=== PATIENT | male | born 1950 | race Caucasian/White ===

== ENCOUNTER 2020-02-27 09:11 | Inpatient (IN) | payer MEDICARE, MEDICAID, OTHER ==
[~2020-02-27] VITALS: Ht 170.2 cm; Wt 72.6 kg
[2020-02-27] MEDS ORDERED: AZITHROMYCIN 500 MG in DEXT 5% WATER 250 ML IV ONE (09:30)
[2020-02-27] MEDS ORDERED: CEFTRIAXONE 1 G PREMIX 50 ML IV ONE (09:30)
[2020-02-27] MEDS ORDERED: DEXAMETHASONE 10 MG/ML VIAL IV ONE (09:30)
[2020-02-27 10:15] LABS: BASOPHILS % 0.8 % (0.0-2.0); EOSINOPHILS % 0.3 % (0.0-5.0); HEMATOCRIT. 43.5 % (42.0-52.0); HEMOGLOBIN. 14.1 g/dL (14.0-18.0); LYMPHOCYTES % 24.7 % (20.0-50.0); MEAN CORPUSCULAR HEMOGLOBIN 30.1 pg (28.0-32.0); MEAN CORPUSCULAR VOLUME 93.1 fL (80.0-94.0); MONOCYTES % 5.8 % (2.0-8.0); NEUTROPHILS % 68.4 % (40.0-76.0); PLATELET 226 x1000/uL (130-400); RED BLOOD CELL COUNT 4.67 mill/uL (4.7-6.1); RED CELL DISTRIBUTION WIDTH 14.8 % (11.6-14.6)
[2020-02-27 10:18] LABS: CHLORIDE 102 mEq/L (98-107)
[2020-02-27 10:27] LABS: CREATINE KINASE 350 IU/L (39-308)
[2020-02-27 10:31] LABS: D-DIMER 4.47 mg/L FEU (<0.50); PROTHROMBIN TIME 10.9 sec (9.6-11.0)
[2020-02-27] MEDS ORDERED: ASPIRIN 300MG SUPP PR ONE (10:45)
[2020-02-27 10:53] LABS: CLARITY URINE CLEAR (CLEAR); COLOR URINE YELLOW (YELLOW); KETONES URINE 2+ (NEGATIVE); LEUKOCYTE ESTERASE URINE NEGATIVE (NEGATIVE); NITRITE URINE NEGATIVE (NEGATIVE); OCCULT BLOOD URINE 2+ (NEGATIVE); PROTEIN URINE 2+ (NEGATIVE); SPECIFIC GRAVITY URINE 1.023 (1.005-1.030); UROBILINOGEN URINE 0.2 E.U./dL (0.2-1.0)
[2020-02-27] MEDS ORDERED: HEPARIN 25,000 UNITS PREMIX 250 ML IV SCH (11:00)
[2020-02-27] MEDS ORDERED: ENOXAPARIN 80MG/0.8ML SYR SUBCUT ONE (11:00)
[2020-02-27] MEDS: FUROSEMIDE 40MG/4ML VIAL IVP SCH ×2 (12:34→16:16)
[2020-02-27] MEDS ORDERED: ENOXAPARIN 80MG/0.8ML SYR SUBCUT SCH (13:00)
[2020-02-27 14:02] LABS: BG BASE EXCESS -4.7 mmol/L (-2.0-2.0); BG CARBOXYHEMOGLOBIN 0.2 % (0.5-1.5); BG DEOXYHEMOGLOBIN 0.3 % (0.0-5.0); BG FRACTION INSPIRED OXYGEN 100; BG HCO3 ACT 18.8 mmol/L (22.0-26.0); BG METHEMOGLOBIN 0.3 % (0.0-1.5); BG OXYGEN SATURATION 99.7 % (92.0-98.5); BG OXYHEMOGLOBIN 99.2 % (94.0-97.0); BG PCO2 30.4 mmHg (35.0-45.0); BG PH 7.409 (7.350-7.450); BG PO2 402.7 mmHg (75.0-100.0); BG SAMPLE SITE RIGHT RADIAL; BG TOTAL HEMOGLOBIN 13.1 g/dL (12.0-18.0); BG TOTAL RESPIRATORY RATE 24 b/min; BG VENT MODE MASK - BIPAP
[2020-02-27] MEDS ORDERED: CEFTRIAXONE 1 G PREMIX 50 ML IV SCH (17:00)
[2020-02-27] MEDS: METHYLPREDNISOLONE SOD SUCC 40 MG/ML VIAL IV SCH (17:04)
[2020-02-27] MEDS ORDERED: LORAZEPAM 0.5MG TABLET PO PRN (17:45)
[2020-02-27] MEDS ORDERED: CLONIDINE 0.1MG TABLET PO PRN (17:45)
[2020-02-27] MEDS ORDERED: ACETAMINOPHEN 325MG TABLET PO PRN ×2 (17:45)
[2020-02-27] MEDS ORDERED: ONDANSETRON HCL 4MG/2ML INJ IV PRN (17:45)
[2020-02-27] MEDS ORDERED: HYDROCODONE/ACETAMINOPHEN 5/325MG TABLET PO PRN (17:45)
[2020-02-27 18:22] LABS: *AMPHETAMINES SCREEN URINE PRESUMTIVE POSITIVE (NEGATIVE); *BARBITURATES SCREEN URINE NEGATIVE (NEGATIVE); *BENZODIAZEPINES SCREEN URINE NEGATIVE (NEGATIVE); *COCAINE SCREEN URINE NEGATIVE (NEGATIVE); METHADONE URINE SCREEN NEGATIVE (NEGATIVE); OPIATES URINE SCREEN NEGATIVE (NEGATIVE)
[2020-02-27 18:23] LABS: CANNABINOID URINE SCREEN NEGATIVE (NEGATIVE); PHENCYCLIDINE URINE SCREEN NEGATIVE (NEGATIVE)
[2020-02-27] MEDS: ENOXAPARIN 80MG/0.8ML SYR SUBCUT SCH (23:13)
[2020-02-28] MEDS: METHYLPREDNISOLONE SOD SUCC 40 MG/ML VIAL IV SCH ×2 (01:12→08:50)
[2020-02-28 05:32] LABS: HEMATOCRIT. 39.4 % (42.0-52.0); HEMOGLOBIN. 13.2 g/dL (14.0-18.0); MEAN CORPUSCULAR HEMOGLOBIN 30.1 pg (28.0-32.0); MEAN CORPUSCULAR VOLUME 89.5 fL (80.0-94.0); MEAN PLATELET VOLUME 9.4 fl (7.4-10.4); PLATELET 200 x1000/uL (130-400); RED CELL DISTRIBUTION WIDTH 14.4 % (11.6-14.6)
[2020-02-28 05:39] LABS: CHLORIDE 106 mEq/L (98-107)
[2020-02-28 05:46] LABS: LDL CHOLESTEROL 72 mg/dL (5-100)
[2020-02-28 05:48] LABS: HDL CHOLESTEROL 29 mg/dL (40-59)
[2020-02-28 06:54] LABS: PLATELET ESTIMATE NORMAL
[2020-02-28] MEDS: FUROSEMIDE 40MG/4ML VIAL IVP SCH (08:50)
[2020-02-28] MEDS: AZITHROMYCIN 500 MG TABLET PO SCH (08:50)
[2020-02-28] MEDS: CEFTRIAXONE 1 G PREMIX 50 ML IV SCH (09:09)
[2020-02-28] MEDS: ENOXAPARIN 80MG/0.8ML SYR SUBCUT SCH ×2 (11:44→23:58)
[2020-02-28] MEDS: ASPIRIN 81MG EC TABLET PO SCH (12:00)
[2020-02-29 08:18] LABS: HEMATOCRIT. 42.7 % (42.0-52.0); MEAN CORPUSCULAR HEMOGLOBIN 29.7 pg (28.0-32.0); MEAN CORPUSCULAR VOLUME 90.5 fL (80.0-94.0); MEAN PLATELET VOLUME 9.3 fl (7.4-10.4); PLATELET 311 x1000/uL (130-400); RED BLOOD CELL COUNT 4.72 mill/uL (4.7-6.1); RED CELL DISTRIBUTION WIDTH 14.8 % (11.6-14.6)
[2020-02-29] MEDS: ASPIRIN 81MG EC TABLET PO SCH ×2 (09:00→09:51)
[2020-02-29] MEDS: AZITHROMYCIN 500 MG TABLET PO SCH (09:12)
[2020-02-29] MEDS: CEFTRIAXONE 1 G PREMIX 50 ML IV SCH (09:12)
[2020-02-29] MEDS: DEXAMETHASONE 10 MG/ML VIAL IV SCH (09:12)
[2020-02-29 10:02] LABS: PLATELET ESTIMATE NORMAL
[2020-02-29] MEDS: CLOPIDOGREL 75MG TABLET PO SCH (10:47)
[2020-02-29] MEDS: ENOXAPARIN 80MG/0.8ML SYR SUBCUT SCH ×2 (10:47→21:30)
[2020-02-29] MEDS ORDERED: ASPIRIN 81MG TABLET PO SCH (12:00)
[2020-02-29 20:00] VITALS: BP 126/73
[2020-02-29 21:00] VITALS: BP 126/73
[2020-03-01] VITALS: BP 122/55
[2020-03-01 00:41] LABS: CREATINE KINASE 145 IU/L (39-308)
[2020-03-01 04:00] VITALS: BP 127/61
[2020-03-01 06:19] LABS: HEMATOCRIT. 39.9 % (42.0-52.0); HEMOGLOBIN. 13.3 g/dL (14.0-18.0); MEAN CORPUSCULAR HEMOGLOBIN 29.9 pg (28.0-32.0); MEAN CORPUSCULAR VOLUME 89.9 fL (80.0-94.0); MEAN PLATELET VOLUME 9.4 fl (7.4-10.4); PLATELET 312 x1000/uL (130-400); RED BLOOD CELL COUNT 4.44 mill/uL (4.7-6.1); RED CELL DISTRIBUTION WIDTH 14.2 % (11.6-14.6)
[2020-03-01] MEDS: ASPIRIN 81MG TABLET PO SCH (09:11)
[2020-03-01] MEDS: CLOPIDOGREL 75MG TABLET PO SCH (09:11)
[2020-03-01] MEDS: ENOXAPARIN 80MG/0.8ML SYR SUBCUT SCH ×2 (09:11→22:27)
[2020-03-01] MEDS: DEXAMETHASONE 10 MG/ML VIAL IV SCH (09:11)
[2020-03-01] MEDS: AZITHROMYCIN 500 MG TABLET PO SCH (09:11)
[2020-03-01] MEDS: CEFTRIAXONE 1,000 MG in DEXTROSE 5% WATER 50 ML IV SCH (09:12)
[2020-03-01 14:00] VITALS: BP 133/61
[2020-03-01 16:47] LABS: PLATELET ESTIMATE NORMAL
[2020-03-01 20:00] VITALS: BP 131/60
[2020-03-01] MEDS: ATORVASTATIN CALCIUM 10MG TABLET PO SCH (21:48)
[2020-03-02] VITALS: BP 130/62
[2020-03-02 04:00] VITALS: BP 132/62
[2020-03-02 06:48] LABS: CHLORIDE 107 mEq/L (98-107)
[2020-03-02 06:51] LABS: HEMATOCRIT. 40.6 % (42.0-52.0); HEMOGLOBIN. 13.6 g/dL (14.0-18.0); MEAN CORPUSCULAR HEMOGLOBIN 30.5 pg (28.0-32.0); MEAN CORPUSCULAR VOLUME 90.8 fL (80.0-94.0); MEAN PLATELET VOLUME 9.5 fl (7.4-10.4); PLATELET 315 x1000/uL (130-400); RED BLOOD CELL COUNT 4.47 mill/uL (4.7-6.1); RED CELL DISTRIBUTION WIDTH 14.4 % (11.6-14.6)
[2020-03-02] MEDS: AZITHROMYCIN 500 MG TABLET PO SCH (10:08)
[2020-03-02] MEDS: DEXAMETHASONE 10 MG/ML VIAL IV SCH (10:08)
[2020-03-02] MEDS: CLOPIDOGREL 75MG TABLET PO SCH (10:08)
[2020-03-02] MEDS: ASPIRIN 81MG TABLET PO SCH (10:08)
[2020-03-02] MEDS: CEFTRIAXONE 1,000 MG in DEXTROSE 5% WATER 50 ML IV SCH (10:08)
[2020-03-02 12:00] VITALS: BP 132/81
[2020-03-02] MEDS: ENOXAPARIN 80MG/0.8ML SYR SUBCUT SCH ×2 (13:39→22:12)
[2020-03-02 16:00] VITALS: BP 122/52
[2020-03-02] MEDS: SODIUM POLYSTYRENE SULFONATE 15 G/60 ML BOT PO NR ×2 (17:27→18:18)
[2020-03-02 20:00] VITALS: BP 116/56
[2020-03-02 21:57] LABS: PLATELET ESTIMATE NORMAL
[2020-03-02] MEDS: ATORVASTATIN CALCIUM 10MG TABLET PO SCH (22:12)
[2020-03-03] VITALS: BP 120/55
[2020-03-03 04:00] VITALS: BP 130/59
[2020-03-03 07:56] LABS: HEMATOCRIT. 40.4 % (42.0-52.0); HEMOGLOBIN. 13.3 g/dL (14.0-18.0); MEAN CORPUSCULAR HEMOGLOBIN 29.9 pg (28.0-32.0); MEAN CORPUSCULAR VOLUME 90.6 fL (80.0-94.0); MEAN PLATELET VOLUME 8.8 fl (7.4-10.4); PLATELET 372 x1000/uL (130-400); RED BLOOD CELL COUNT 4.46 mill/uL (4.7-6.1); RED CELL DISTRIBUTION WIDTH 14.3 % (11.6-14.6)
[2020-03-03 08:00] VITALS: BP 145/69
[2020-03-03 08:07] LABS: HIV SCREEN 4G Non Reactive (Non Reactive)
[2020-03-03 08:18] LABS: CHLORIDE 105 mEq/L (98-107)
[2020-03-03 08:26] LABS: PHOSPHORUS 3.7 mg/dL (2.5-4.9)
[2020-03-03] MEDS: CEFTRIAXONE 1,000 MG in DEXTROSE 5% WATER 50 ML IV SCH (09:59)
[2020-03-03] MEDS: AZITHROMYCIN 500 MG TABLET PO SCH (09:59)
[2020-03-03] MEDS: CLOPIDOGREL 75MG TABLET PO SCH (09:59)
[2020-03-03] MEDS: DEXAMETHASONE 10 MG/ML VIAL IV SCH (09:59)
[2020-03-03] MEDS: ASPIRIN 81MG TABLET PO SCH (09:59)
[2020-03-03 12:00] VITALS: BP 111/63
[2020-03-03] MEDS: ENOXAPARIN 80MG/0.8ML SYR SUBCUT SCH (13:29)
[2020-03-03] MEDS ORDERED: ATOR10TA PO (15:28)
[2020-03-03] MEDS ORDERED: CLOP75TA15 PO (15:28)
[2020-03-03] MEDS ORDERED: ASPI-1160 PO (15:28)
[2020-03-03 16:00] VITALS: BP 135/69
[2020-03-03 17:25] LABS: PLATELET ESTIMATE NORMAL
[2020-03-03 19:23] VITALS: BP 135/69
[2020-03-03] MEDS ORDERED: ENOXAPARIN 80MG/0.8ML SYR SUBCUT SCH (23:00)
[2020-03-04 09:07] LABS: ANTI-NUCLEAR ANTIBODIES DIRECT Negative (Negative)
== END 2020-03-03 19:53 | disposition home or self-care (01) | DRG 871 ==
LOC: ER 09:21 → EDBD 09:21 → MICUSO 10:51 → EDBEDREQ 10:56 → 7WST 02-29 18:58
PROVIDERS: ADMIT Internal Medicine; ATTEND Internal Medicine
PROC: 5A09357 Assistance with Respiratory Ventilation, Less than 24 Consecutive Hours, Continuous Positive Airway Pressure (ICD-10-PCS; principal; 2020-02-27)
DX: A41.89 Other specified sepsis (principal); U07.1 COVID-19; J96.01 Acute respiratory failure with hypoxia; J12.89 Other viral pneumonia; I21.3 ST elevation (STEMI) myocardial infarction of unspecified site; J15.8 Pneumonia due to other specified bacteria; E87.2 Acidosis; N17.9 Acute kidney failure, unspecified; J68.0 Bronchitis and pneumonitis due to chemicals, gases, fumes and vapors; F19.20 Other psychoactive substance dependence, uncomplicated; I50.9 Heart failure, unspecified; I11.0 Hypertensive heart disease with heart failure; B97.89 Other viral agents as the cause of diseases classified elsewhere; E78.5 Hyperlipidemia, unspecified; F15.90 Other stimulant use, unspecified, uncomplicated; E78.1 Pure hyperglyceridemia; R74.01 Elevation of levels of liver transaminase levels; R31.9 Hematuria, unspecified; R65.20 Severe sepsis without septic shock; E87.5 Hyperkalemia; Z79.02 Long term (current) use of antithrombotics/antiplatelets; Z82.49 Family history of ischemic heart disease and other diseases of the circulatory system; Z83.3 Family history of diabetes mellitus; Z79.899 Other long term (current) drug therapy
CPT/HCPCS: 36415; 36600; 71045; 76770; 80048; 80053; 80061; 80305; 81003; 82375; 82550; 82728; 82805; 83605; 83615; 83735; 83880; 84100; 84132; 84145; 84484; 85025; 85379; 85384; 86038; 86140; 86160; 87389; 93005; 99291; C9803; J0456; J0696; J1100; J1650; J1940; J2920; J7060; U0003